=== PATIENT | male | born 1955 | race Caucasian/White ===

== ENCOUNTER 2022-03-13 14:18 | Emergency (ER) | payer MEDICARE, MEDICAID ==
[2022-03-13] MEDS: EPINEPHrine 1:10,000 1 MG/10 ML Syringe IVPUSH ONE ×3 (14:20→15:12)
[2022-03-13 14:45] LABS: ESTIMATED GFR 44 mL/min (>60)
== END 2022-03-13 14:30 | disposition expired ==
LOC: FB.ED 14:18
DX: I46.9 Cardiac arrest, cause unspecified (principal)
CPT/HCPCS: 36415; 80053; 84484; 85025; 85610; 85730; 92950; 99285; J0171